=== PATIENT | male | born 1995 | race Caucasian/White ===

== ENCOUNTER 2020-03-20 13:52 | Emergency (ER) | payer SELFPAY ==
[2020-03-20 13:56] VITALS: BP 119/74; PULSE 102; RESP 16; TEMP 37; O2SAT 100; BMI 22.3
[2020-03-20 14:03] VITALS: RESP 18
--- NOTE | 2020-03-20 14:03 | XR_ITS ---
WS: [id number] Left ankle, 3 views, 03/20/2020 Clinical Data: fall Comparison: None. Findings: No fractures or dislocations are seen. The ankle mortise is normal. The talus and calcaneus are unrem arkable. No soft tissue swelling over the medial or lateral malleolus is seen. XR/XR ankle LT min 3V* [id number] Impression: Negative left ankle.
--- NOTE | 2020-03-20 14:12 | ED_ITS ---
HPI - Fall General: Chief Complaint: Fall Stated Complaint: FALL ON ICE/ L FOOT INJURY Time Seen by Provider: 03/20/20 14:03 History of Present Illness: HPI Narrative: Patient slipped down a ramp on ice struck concrete block with left ankle and has a laceration. Denies any other injuries denies any head injury tetanus is up-to-date MD complaint: fall Onset (ago): minute(s) Fall from: standing Fall witnessed: yes, by family Place fall occurred: home Loss of consciousness: None Prolonged down time: no Symptoms prior to fall: none Context: tripped/slipped (Ice on around) Location of injury - extremities: Left: ankle (Laceration) Severity: mild Severity scale (1-10): 2 Quality: burning and aching Associated symptoms-after fall: Reports no associated symptoms; Denies abdominal pain, chest pain or headache(s) Review of Systems Const: Denies: fever(s), chills or body aches Eyes: Denies: change in vision or blurry vision ENMT: Denies: throat pain or nasal congestion Card: Denies: chest pain or dyspnea on exertion Resp: Denies: dyspnea, productive cough or non-productive cough GI: Denies: abdominal pain, nausea or vomiting : Denies: difficulty urinating Musc: Reports: joint pain (Ankle); Denies: extremity pain Skin/Breast: Reports: other (Skin tear/laceration left ankle area sustained in a fall); Denies: rash Neuro: Denies: headache(s) Psych: Denies: anxiety or depression Fady/Lymph: Denies: easy bruising PFS ED PFSH: Social History Smoking and tobacco status: current every day smoker Physical Exam Const: COMMON NORMALS: average body habitus and patient oriented x3 HENMT: COMMON NORMALS: normocephalic HEAD & SCALP: normal to inspection and normocephalic FACE & SINUS: normal facial exam Eye: COMMON NORMALS: conjunctivae normal GENERAL EYE: appearance normal, both eyes and all related structures CONJUNCTIVA: Yes conjunctivae normal Neck/C-Spine: COMMON NORMALS: no JVD Chest: COMMONS NORMALS: normal inspection of the chest Resp: COMMON NORMALS: normal respiratory effort and clear to auscultation bilaterally AUSCULTATION: clear to auscultation bilaterally Cardio: COMMON NORMALS: no JVD, regular rate and regular rhythm RATE: regular rate RHYTHM: regular rhythm GI: COMMON NORMALS: Normal to inspection, nondistended, normoactive bowel sounds present Extremity: COMMON NORMALS: normal to inspection and full ROM LEFT LOWER EXTREMITY: Yes ankle joint (No swelling noted to the ankle does have a ragged laceration to the anterio) Left ankle: Yes ROM (Good) Neuro: COMMON NORMALS: patient oriented x3 Procedures Laceration Laceration 1: Site: lower extremity Side (If applicable): left Size (cm): 6 Description: linear, irregular and contaminated Depth: simple, single layer Local Anesthetic: lidocaine 1% Amount of anesthesia used (mL): 6 Pre-repair: wound explored, irrigated extensively and deep structures intact Skin layer closed with: nylon Size (cm): 4-0 Number of sutures: 10 Technique: simple, interrupted Course Vital Signs: Vital signs: Vital Signs Temperature 98.6 F 03/20/20 13:56 Pulse Rate 102 H 03/20/20 13:56 Respiratory Rate 18 03/20/20 14:03 Blood Pressure 119/74 03/20/20 13:56 Pulse Oximetry 100 03/20/20 13:56 Discharge Plan Discharge Patient Disposition: Home Clinical Impression: Laceration Condition: Stable Prescriptions: No Action cephalexin 500 mg capsule 500 mg PO Q12H 10 Days Qty: 20 RF: 0 Discharge Orders: Discharge ED (Routine); Ordered 03/20/20 Ordered By: Sukumar Brannon Referrals: Debi Knowles FNP [Primary Care Provider] - Discharge Diet: Usual diet Discharge Activity: Resume usual activity Patient Instructions: Laceration (ED) Activity Restrictions/Additional Instructions: Follow instruction laceration discharge charge sheet. Get sutures removed in 7 days. Can keep wound covered with Vaseline are petroleum jelly and Telfa pad plus dressing. If any problems please follow-up with your primary care provider or urgent care or come back to the ER. 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
[2020-03-20] MEDS: lidocaine 1% INJ 20 mL 5 ML INTRADERMA (14:19)
--- NOTE | 2020-04-01 19:53 | PC.NURSE ---
PTS SUTURES WERE REMOVED AFTER COMMUNITY ASSOCIATE ANDREA LOOKED AT THE AREA. PT WAS GIVEN A SCRIPT FOR ANTIBIOTICS.
== END 2020-03-20 15:16 | disposition home or self-care (01) ==
PROVIDERS: Emergency Provider Nurse Practitioner Family; PCP Nurse Practitioner Family
DX: S91.012A Laceration without foreign body, left ankle, initial encounter (principal); F17.210 Nicotine dependence, cigarettes, uncomplicated; W00.2XXA Other fall from one level to another due to ice and snow, initial encounter
CPT/HCPCS: 12002; 73610; 99282

== ENCOUNTER → 2021-02-11 09:30 | Outpatient (BNVA) | payer MEDICAID, SELFPAY | PROVIDERS: PCP Nurse Practitioner Family; Visit Provider Nurse Practitioner Family | DX: Z20.822 Contact with and (suspected) exposure to COVID-19 (principal) | CPT/HCPCS: 87426 ==

== ENCOUNTER → 2022-06-17 10:49 | Outpatient (BNVA) | payer MEDICAID, SELFPAY | PROVIDERS: PCP Family Medicine; Visit Provider Family Medicine | DX: N20.0 Calculus of kidney (principal) | CPT/HCPCS: 80053; 81000; 85025 ==

== ENCOUNTER → 2023-03-15 16:12 | Outpatient (BNVA) | payer MEDICAID, SELFPAY | PROVIDERS: PCP Family Medicine; Visit Provider Nurse Practitioner | DX: R09.81 Nasal congestion (principal); J06.9 Acute upper respiratory infection, unspecified | CPT/HCPCS: 87400 ==